=== PATIENT | female | born 1960 | race Caucasian/White ===

== ENCOUNTER 2016-09-13 08:03 | Day surgery (SDC) | payer OTHER ==
[~2016-09-13 08:03] MED LIST: DIPRIVAN 200 MG/20 ML IV ONE; Ketamine HCl 50 MG/ML IJ ONE; Lactated Ringers 1,000 ML IV SCH
[2016-09-13] MEDS ORDERED: Lactated Ringers 1,000 ML IV ONE ×3 (08:28→12:59)
[2016-09-13 11:37] VITALS: O2SAT 100
[2016-09-13 11:54] VITALS: BP 129/70; PULSE 69
--- NOTE | 2016-09-14 08:33 | OP ---
PROCEDURE DATE/TIME: 09/13/2016 0952 PREOPERATIVE DIAGNOSES: 1) Upper abdominal pain and reflux. 2) Need for screening colonoscopy secondary to history of colon polyps and family history of colon cancer. POSTOPERATIVE DIAGNOSES: 1) Grade I gastroesophageal reflux disease. 2) Mild diverticulosis. PROCEDURES: 1) EGD with biopsy. 2) Colonoscopy with biopsy. PROCEDURE PERFORMED BY: Deanna Merino M.D. ANESTHESIA: MAC. ESTIMATED BLOOD LOSS: Minimal. COMPLICATIONS: None. SPECIMENS: 1) Antral biopsy; rule out Helicobacter pylori. 2) Sigmoid colon biopsy. HISTORY: This is a 56 year-old female who presents for screening colonoscopy due to a history of polyps as well as a family history of colon cancer. She does also have some reflux and a mild amount of upper abdominal pain and so we will also perform an EGD. I have discussed both of the procedures risks, benefits, alternatives to the patient and she understands and she agreed to proceed. DESCRIPTION OF PROCEDURE: The patient was seen preoperative area. Any remaining questions were answered. She was then brought back to the endoscopy suite. Anesthesia was induced. A complete time out was then performed. The scope was inserted into the mouth, oropharynx and down into the esophagus. The patient did have a very mild amount of reflux changes in the distal esophagus, this was very minimal and this appeared to be grade I reflux. There was no sign of any obvious gross Osorio's disease. The scope was easily advanced into the stomach. In the stomach there was some very trace gastritis in the antrum but overall the stomach was very healthy. We were able to enter the duodenum nicely and the duodenum appeared normal. The scope was withdrawn back into the antrum, retroflexed to look at the hiatus. The cardia of the stomach looked normal. The scope was then un-retroflexed. I did take an antral biopsy with cold forceps to rule out any Helicobacter pylori disease to cause her symptoms and this site was hemostatic after biopsy and then the stomach was desufflated. The scope was carefully withdrawn. No other significant findings. We will plan to repeat her EGD on a PRN basis and she is already on a proton pump inhibitor which she will continue. She was then repositioned for colonoscopy. First, we did a rectal exam and then the scope was entered and carefully guided towards the cecum. There were areas where the patient had some thicker liquid stool. A small or flat lesion could be missed because the prep was not perfect in all areas. We did try to irrigate as much as possible and the colon mucosa appeared to be healthy. We were able to advance the scope all the way to the cecum with some gentle abdominal pressure. In the cecum the ileocecal valve and appendiceal orifice were visualized, this appeared normal and then the scope was carefully withdrawn taking a circumferential look at the mucosa. I did identify in the sigmoid one area that appeared to be slightly abnormal, this almost looked more like a plaque than a polyp on the colon wall. There were no other areas with this on it. I did take a hot forceps biopsy of this site and removed it as if it were a polyp. It was really barely raised and could be an early polyp but I sent this to pathology and after biopsy the site looked hemostatic and the lesion was completely removed. Once this was done we continued to withdrawal the scope. I did not find any other concerning issues here. The patient tolerated the procedure very well. There were no immediate complications. We will plan to keep her on a three year interval due to her polyp history as well as her family history.
== END 2016-09-13 11:45 | disposition home or self-care (01) ==
LOC: SDC 08:03
PROVIDERS: ATTEND Surgery
PROC: 0DB68ZX Excision of Stomach, Via Natural or Artificial Opening Endoscopic, Diagnostic (ICD-10-PCS; principal; 2016-09-13)
PROC: 0DBN8ZX Excision of Sigmoid Colon, Via Natural or Artificial Opening Endoscopic, Diagnostic (ICD-10-PCS; 2016-09-13)
DX: K21.9 Gastro-esophageal reflux disease without esophagitis (principal); Z86.010 Personal history of colon polyps; Z80.0 Family history of malignant neoplasm of digestive organs; Z12.11 Encounter for screening for malignant neoplasm of colon; K57.90 Diverticulosis of intestine, part unspecified, without perforation or abscess without bleeding
CPT/HCPCS: 00740; 00810; 36415; J2704